=== PATIENT | female | born 1990 | race American Indian/Alaskan Native ===

== ENCOUNTER 2024-10-24 18:27 | Emergency (ER) | payer BC, SELFPAY ==
[2024-10-24 18:33] VITALS: BP 99/69
[2024-10-24 18:39] VITALS: BP 99/69; BMI 31.2
[2024-10-24 18:46] LABS: Hematocrit 35.4 % (37.0-47.0); Hemoglobin 11.9 g/dL (12.0-16.0); Mean Corp Hgb Conc. 33.6 g/dL (33.0-37.0); Mean Corpuscular Volume 84.3 fL (81.0-99.0); Nucleated Red Blood Cells % 0 %; Platelet Count 185 10^3/uL (130-400); Red Cell Dist. Width 13.0 % (11.5-14.5)
[2024-10-24 19:01] VITALS: BP 97/72
[2024-10-24 19:08] LABS: ALT (SGPT) 16 U/L (0-35); AST (SGOT) 23 U/L (14-36); Albumin 4.0 g/dl (3.5-5.0); Alkaline Phosphatase 71 U/L (38-126); Blood Urea Nitrogen 10 mg/dl (7-17); Calcium 8.5 mg/dl (8.4-10.2); Carbon Dioxide 23 mmol/L (22-30); Chloride 107 mmol/L (98-107); Estimated Creatinine Clearance 93 ml/min; Glucose 110 mg/dl (70-99); Magnesium 1.9 mg/dl (1.6-2.3); Potassium 3.6 mmol/L (3.5-5.1); Sodium 139 mmol/L (135-145); Total Protein 7.0 g/dl (6.3-8.2); eGFR > 60.00
[2024-10-24 19:12] LABS: Troponin I < 0.012 ng/ml
--- NOTE | 2024-10-24 19:44 | ED.GENMED ---
History of Present Illness
General
Chief Complaint: Fainting/Passed Out
Source: patient
Exam Limitations: none
Time Seen by Provider: 10/24/24 18:36
Nursing documentation reviewed up to this point in time: agreed with
History of Present Illness
History of Present Illness:
34-year-old female [facility] patient had a syncopal episode when she stood up quickly felt lightheaded fell to the ground which was witnessed by her friends they deny
any specific trauma they were to catch her prior to falling to the ground. Did not hit her head has some mild ongoing generalized weakness and fatigue but denies any headache chest pain shortness of breath or additional concerns. No significant
medical conditions. Also was tubing for multiple hours today did not have any significant fluids.
Review of Systems
Review of Systems
Allergies reviewed?: Yes
All Other Systems: ROS reviewed and negative except as documented in HPI and ROS
Phy Exam
Physical Exam
Physical Exam:
GENERAL: Alert , in no apparent distress
EYE: pupils equal and reactive
NECK: Supple, no significant adenopathy.
ENT: o/p clr, mmm.
CARDIAC: Regular rate and rhythm .
LUNGS: Clear breath sounds bilaterally, no acute respiratory distress, no wheezes/rales/rhonchi
ABDOMEN: Soft, without focal tenderness, no r/g, no cvat
NEUROLOGICAL: Alert and oriented, no focal neuro deficits
SKIN: Warm and dry, skin intact.
MUSCULOSKELETAL: No edema, well perfused.
PSYCH: Normal and appropriate interaction.
Course
Orders/Labs/Results
Orders:
Orders
10/24/24 18:31
Electrocardiogram (*1) Urgent
Reason for Study: Vertigo / Dizzy
10/24/24 18:32
EKG- Treatment ONCE
10/24/24 18:37
Complete Blood Count/With Diff Urgent
Comprehensive Metabolic Panel Urgent
Magnesium Urgent
Troponin I Urgent
Abnormal Lab Results
10/24/24
18:37
Hgb 11.9 L g/dL
(12.0-16.0)
Hct 35.4 L %
(37.0-47.0)
MPV 10.6 H fL
(7.4-10.4)
Absolute Lymphs (auto) 3.7 H 10^3/uL
(1.2-3.4)
Glucose 110 H mg/dl
(70-99)
10/24/24 18:37
10/24/24 18:37
Vital Signs
Initial and Last Documented VS:
Initial Vital Signs
BP
99/69
10/24/24 18:33
Last Documented Vital Signs
Temp Pulse Resp BP Pulse Ox
98.7 F 99 18 100/85 99
10/24/24 18:39 10/24/24 20:45 10/24/24 20:45 10/24/24 20:17 10/24/24 20:45
MDM/Problems Addressed
MDM/Problems Addressed:
34-year-old female presenting to the emergency department today after syncopal episode. No trauma sustained. Minimal ongoing no chest pain at any point no palpitations. Normal EKG labs unremarkable troponin negative. Labs unremarkable patient
with improved symptoms stable for discharge at this time no evidence of emergent causes. Return precautions given.
*Pulse Oximetry
SaO2: 99
Oxygen Mode of Delivery: Room air
Patient hypoxic: no (98)
*Critical Care Note
Total Time (30-74mins, 75-104mins- exclusive of procedures): Not Applicable
ED Attending Note
-
Portions of this chart may have been created with voice recognition software.� Occasional wrong word or��sound alike� substitutions may have occurred due to the inherent limitations of voice recognition software.
Discharge Plan
Departure
Patient Disposition: Home (Routine Discharge)
Date of Disposition: 10/24/24
Time of Disposition: 21:10
Patient with high blood pressure during this ER visit?: No
Condition: Good
Covid-19: Not Applicable
Discharge Problem:
Syncope
Instructions: Syncope (Fainting) (DC)
Prescriptions:
No Action
Zepbound 2.5 mg/0.5 mL Pen Injector
2.5 mg SC QWEEK
Rx Instructions:
for 4 weeks
Referrals:
PRIVATE,PHYSICIAN [Family Provider, Internal Medicine]
Activity Restrictions/Additional Instructions:
You came to the emergency department today after syncopal episode. Here you had a reassuring assessment. Please rest over the next day or 2. Return for any worsening, new or concerning symptoms.
Interventions
Interventions:
*Risk Screen - Suicide Last Done: 10/24/24 18:39
*General Assessment Last Done: 10/24/24 18:39
*Neglect/Abuse Screening Last Done: 10/24/24 18:39
*ED- Fall Risk Assessment Last Done: 10/24/24 18:39
*ED COVID-19 Vaccine History Last Done: 10/24/24 18:39
ED- Cardiac Assessment Last Done: 10/24/24 18:39
ED- Neurological Assessment Last Done: 10/24/24 18:39
Discharge Date and Time
Print Language: AMHARIC
[2024-10-24 20:17] VITALS: BP 100/85
[2024-10-24 21:00] VITALS: BP 91/71
== END 2024-10-24 21:40 | disposition home or self-care (01) ==
LOC: EMR 18:27
PROVIDERS: EMERGENCY PHYSICIAN Emergency Medicine
DX: R55 Syncope and collapse (principal); R53.1 Weakness; R53.83 Other fatigue; W18.30XA Fall on same level, unspecified, initial encounter; Y93.89 Activity, other specified; Y92.89 Other specified places as the place of occurrence of the external cause
CPT/HCPCS: 99283; 80053; 83735; 84484; 85025; 93005